=== PATIENT | female | born 1960 | race Caucasian/White ===

== ENCOUNTER 2016-09-23 07:51 | Emergency (ER) | payer OTHER ==
[~2016-09-23 07:51] MED LIST: ACYCLOVIR400 MG; ATENOLOL25 MG PO; BENTYL10 MG PO; BUDEPRION SR100 MG; CIPRO250 MG; CITALOPRAM HBR20 MG; FLUOXETINE HCL40 MG PO; GABAPENTIN100 MG; GABAPENTIN100 MG PO; LORAZEPAM1 MG; NORCO 7.5/325 T1 TAB PO; TRAZODONE100 MG
[2016-09-23] MEDS ORDERED: NEURONTIN600 M1 PO (08:13)
[2016-09-23] MEDS ORDERED: TRAZODONE HCL100 M1 PO (08:13)
[2016-09-23] MEDS ORDERED: HYDROCODONE PO (08:20)
[2016-09-23] MEDS ORDERED: PERCOCET 5-3251 EACH PO (10:22)
[2016-11-09] MEDS ORDERED: HYDROCODONE-IB1 EAC1 PO (10:35)
[2016-11-09] MEDS ORDERED: HYDROCODON-ACE1 EA17 PO (10:36)
== END 2016-09-23 11:05 ==
LOC: EDMED 07:51
DX: S76.911A Strain of unspecified muscles, fascia and tendons at thigh level, right thigh, initial encounter (principal); Z96.641 Presence of right artificial hip joint; W17.89XA Other fall from one level to another, initial encounter; Y92.019 Unspecified place in single-family (private) house as the place of occurrence of the external cause
CPT/HCPCS: J1170

== ENCOUNTER 2016-11-11 10:17 | Inpatient (IN) | payer OTHER ==
[~2016-11-11 10:17] MED LIST changes: +HYDROCODON-ACE1 EA17 PO; +HYDROCODONE PO; +HYDROCODONE-IB1 EAC1 PO; +NEURONTIN600 M1 PO; +PERCOCET 5-3251 EACH PO; +TRAZODONE HCL100 M1 PO
[2016-11-11] MEDS ORDERED: HYDROCODON-ACE1 EA15 PO (10:57)
[2016-11-12 05:31] LABS: HCT-HEMATOCRIT 31.1 % (34.0-49.0); HGB-HEMOGLOBIN 10.7 gm/dl (12.0-15.5); IMMATURE GRANULOCYTES ABSOLUTE 0.01 tho/cmm (0-0.03); IMMATURE GRANULOCYTES PERCENT 0.1 % (0-0.3); LYMPH % 9.2 % (20-45); LYMPH ABSOLUTE COUNT 1.1 tho/cmm (0.8-4.5); MCH (MEAN CORPUSCULAR HGB) 29.3 pg (28.0-32.0); MCHC MEAN CORPUSCULAR HGB CONC 34.4 % (32.0-36.0); MCV (MEAN CELL VOLUME) 85.2 fl (82.0-96.0); MEAN PLATELET VOLUME 9.1 cmc (9.4-12.4); MONO % 5.1 % (0-12); MONOCYTE ABSOLUTE COUNT 0.6 tho/cmm (0.0-1.2); NEUTROPHIL ABSOLUTE COUNT 9.9 tho/cmm (1.6-8.0); NEUTROPHIL-AUTOMATED 9.9 tho/cmm (1.6-8.0); NEUTROPHILS % 85.6 % (40-80); PLATELET COUNT 237 tho/cmm (150-450); RED BLOOD COUNT 3.65 mil/cmm (4.00-5.20); RED CELL DISTRIBUTION WIDTH 12.7 % (12.4-16.4); WHITE BLOOD COUNT 11.6 tho/cmm (4.0-10.0)
[2016-11-14] MEDS ORDERED: CYCLOBENZAPRINE5 M1 PO (10:58)
[2016-11-14] MEDS ORDERED: ULTRAM50 M1 PO (10:59)
[2016-11-14] MEDS ORDERED: ASPIRIN81 M1 PO (11:02)
[2016-11-14] MEDS ORDERED: MOBIC7.5 M2 PO (11:03)
== END 2016-11-14 12:15 | DRG 909 ==
LOC: SHSA 10:17 → ORE 13:24 → PACU 15:30 → 5EA 16:55
PROVIDERS: ADMIT Orthopaedic Surgery Foot and Ankle Surgery
PROC: 3E0F7GC Introduction of Other Therapeutic Substance into Respiratory Tract, Via Natural or Artificial Opening (ICD-10-PCS; principal; 2016-11-11)
PROC: 0SP Lower Joints, Removal (ICD-10-PCS; principal; 2016-11-11)
PROC: 0SR902A Replacement of Right Hip Joint with Metal on Polyethylene Synthetic Substitute, Uncemented, Open Approach (ICD-10-PCS; principal; 2016-11-11)
DX: T56.91XA Toxic effect of unspecified metal, accidental (unintentional), initial encounter (principal); F32.9 Major depressive disorder, single episode, unspecified; M89.50 Osteolysis, unspecified site; M79.7 Fibromyalgia
CPT/HCPCS: J0171; J0690; J1170; J1885; J2250; J2270; J2795; J3010